=== PATIENT | female | born 1945 | race Caucasian/White ===

== ENCOUNTER 2023-12-06 08:01 | Day surgery (SDC) | payer OTHER ==
[2023-11-30 09:04] VITALS: BMI 34.2
[2023-12-06 08:28] VITALS: TEMP 97.3
[2023-12-06 10:11] VITALS: BP 122/70; PULSE 64; RESP 20
== END 2023-12-06 10:08 | disposition home or self-care (01) ==
LOC: FASU-ENDO 08:01
PROVIDERS: ATTEND Internal Medicine Gastroenterology
PROC: 0DJD8ZZ Inspection of Lower Intestinal Tract, Via Natural or Artificial Opening Endoscopic (ICD-10-PCS; principal; 2023-12-06 08:40)
DX: Z12.11 Encounter for screening for malignant neoplasm of colon (principal)
CPT/HCPCS: 82962